=== PATIENT | female | born 1965 | race Caucasian/White ===

== ENCOUNTER 2019-07-18 06:50 | Emergency (ER) | payer MEDICAID, OTHER ==
[~2019-07-18] VITALS: Ht 167.6 cm; Wt 70.0 kg
--- NOTE | 2019-07-18 07:08 | NUR ---
PT BIB [facility] FOR COUGH, N/V SINCE LAST NIGHT. PT WAS VERY TEARFUL WHEN CHANGING INTO HOSPITAL GOWN. AFTER PT WAS CHANGED. PT IMMEDIATLY FELL ASLEEP. ALIDA. AT BEDSIDE. CALL LIGHT IN REACH
--- NOTE | 2019-07-18 07:30 | NUR ---
LAB AT BEDSIDE
[2019-07-18 07:38] LABS: BASOPHILS # (AUTO) 0.02 x10^3/uL (0-0.1); BASOPHILS % (AUTO) 0 % (0-1); EOSINOPHILS # (AUTO) 0.13 x10^3/uL (0-0.4); EOSINOPHILS % (AUTO) 1 % (1-7); LYMPHOCYTES % (AUTO) 22 % (22-44); MD NO; MEAN CORPUSCULAR HGB CONC 32.9 g/dL (32.4-35.8); MEAN CORPUSCULAR VOLUME 88.3 fL (80-100); MEAN PLATELET VOLUME 6.4 fL (7.4-10.4); MONOCYTES # (AUTO) 0.83 x10^3/uL (0.2-0.8); MONOCYTES % (AUTO) 9 % (2-9); NEUTROPHILS # (AUTO) 6.27 x10^3/uL (1.8-6.8); NEUTROPHILS % (AUTO) 68 % (42-75); PLATELET COUNT 491 x10^3/uL (130-400); RED BLOOD COUNT 4.51 x10^6/uL (3.82-5.3); RED CELL DISTRIBUTION WIDTH 14.9 % (9.6-15.2)
[2019-07-18 07:46] VITALS: BP 118/67
[2019-07-18 07:48] LABS: ALANINE AMINOTRANSFERASE 15 U/L (12-78); ALBUMIN 3.1 g/dL (3.4-5.0); ANION GAP 3 mmol/L (5-15); CALCIUM 8.7 mg/dL (8.5-10.1); CHLORIDE 113 mmol/L (98-107); CREATININE 0.62 mg/dL (0.55-1.02)
[2019-07-18 07:51] LABS: ALKALINE PHOSPHATASE 91 U/L (45-117); BILIRUBIN,TOTAL 0.2 mg/dL (0.2-1.0); TOTAL PROTEIN 7.2 g/dL (6.4-8.2)
--- NOTE | 2019-07-18 08:25 | NUR ---
PT SLEEPING IN NAD. VSS. CALL LIGHT IN REACH
--- NOTE | 2019-07-18 08:58 | NUR ---
REPORT FROM [facility]
--- NOTE | 2019-07-18 09:33 | NUR ---
PT URINATED ON THE FLOOR. SHE STATED NO ONE CAME TO AND SHE PEED ON THE FLOOR.
--- NOTE | 2019-07-18 10:20 | NUR ---
Patient/Caregiver given discharge instructions and they have confirmed that they understand the instructions. Patient ambulatory with steady gait.
--- NOTE | 2019-07-18 10:20 | NUR ---
PT SOILED, PT IN SHOWER THEN DC. GIVEN CLEAN CLOTHES FROM [employer] [facility].
== END 2019-07-18 10:22 | disposition home or self-care (01) ==
LOC: ED 07:39
DX: N30.00 Acute cystitis without hematuria (principal); R11.2 Nausea with vomiting, unspecified; R19.7 Diarrhea, unspecified; F17.200 Nicotine dependence, unspecified, uncomplicated
CPT/HCPCS: 36415; 71045; 80053; 85025; 96361; 99284